=== PATIENT | female | born 1975 | race American Indian/Alaskan Native ===

== ENCOUNTER 2017-12-31 10:27 | Emergency (ER) | payer OTHER ==
[2017-12-31 10:57] VITALS: BP 126/79
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
[2017-12-31] MEDS ORDERED: FLEXERIL PO ONE (14:25)
[2017-12-31] MEDS ORDERED: TYLENOL #3 PO ONE (14:25)
== END 2017-12-31 15:27 | disposition home or self-care (01) ==
LOC: ED 10:27
DX: S16.1XXA Strain of muscle, fascia and tendon at neck level, initial encounter (principal); Z90.5 Acquired absence of kidney; Z91.041 Radiographic dye allergy status; V89.2XXA Person injured in unspecified motor-vehicle accident, traffic, initial encounter; Y93.89 Activity, other specified; Y99.8 Other external cause status; Y92.410 Unspecified street and highway as the place of occurrence of the external cause
CPT/HCPCS: 99282